=== PATIENT | female | born 1990 | race Asian ===

== ENCOUNTER 2018-03-18 20:52 | Inpatient (IN) | payer OTHER ==
[~2018-03-18] VITALS: Ht 163.8 cm; Wt 70.3 kg
[2018-03-18] MEDS ORDERED: OXYTOCIN 30U/ 0.9% NaCL 500ML 500 ML IV ONE (21:21)
[2018-03-18] MEDS ORDERED: D5%-LACTATED RINGERS 1,000 ML IV SCH (21:21)
[2018-03-18] MEDS ORDERED: OXYTOCIN 30U/ 0.9% NaCL 500ML 500 ML ONE (21:26)
[2018-03-18] MEDS ORDERED: MISOPROSTOL 200 MCG TABLET ONE (21:27)
[2018-03-18] MEDS ORDERED: LIDOCAINE-MPF 1%, 5ML ONE (21:27)
[2018-03-18] MEDS ORDERED: FENTANYL PF 100 MCG/2ML IV PRN (21:30)
[2018-03-18] MEDS ORDERED: CALCIUM CARBONATE 500 MG TAB.CHEW PO PRN (21:30)
[2018-03-18] MEDS ORDERED: ONDANSETRON 2MG/ML, 2ML IVPush PRN (21:30)
[2018-03-18] MEDS ORDERED: FENTANYL PF 100 MCG/2ML IVPush PRN (21:30)
[2018-03-18] MEDS ORDERED: LACTATED RINGERS 1,000 ML IVBOLUS PRN ×2 (21:30→23:30)
[2018-03-18 21:44] LABS: BASOPHILS # (AUTO) 0.02 x10^3/uL (0-0.1); BASOPHILS % (AUTO) 0 % (0-1); EOSINOPHILS # (AUTO) 0.26 x10^3/uL (0-0.4); EOSINOPHILS % (AUTO) 3 % (1-7); LYMPHOCYTES # (AUTO) 1.95 x10^3/uL (1-3.4); LYMPHOCYTES % (AUTO) 19 % (22-44); MD NO; MEAN CORPUSCULAR HEMOGLOBIN 26.9 pg (27.0-34.8); MEAN CORPUSCULAR HGB CONC 32.9 g/dL (32.4-35.8); MEAN CORPUSCULAR VOLUME 81.8 fL (80-100); MEAN PLATELET VOLUME 8.3 fL (7.4-10.4); MONOCYTES # (AUTO) 0.92 x10^3/uL (0.2-0.8); MONOCYTES % (AUTO) 9 % (2-9); NEUTROPHILS # (AUTO) 7.07 x10^3/uL (1.8-6.8); NEUTROPHILS % (AUTO) 69 % (42-75); PLATELET COUNT 336 x10^3/uL (130-400); RED BLOOD COUNT 4.64 x10^6/uL (3.82-5.3); RED CELL DISTRIBUTION WIDTH 21.1 % (9.6-15.2)
[2018-03-18] MEDS: LACTATED RINGERS 1,000 ML IV SCH (21:46)
[2018-03-18] MEDS ORDERED: FENTANYL PF 100 MCG/2ML ONE (22:25)
[2018-03-18] MEDS ORDERED: LIDOCAINE 1%, 20ML ONE (22:25)
[2018-03-18] MEDS ORDERED: BUPIVACAINE 0.25% ONE (22:25)
[2018-03-18] MEDS ORDERED: FENTANYL/BUPIV./NS/PF 250 ML EPIDCONT ONE (22:25)
[2018-03-18] MEDS ORDERED: EPHEDRINE 50 MG/ML, 1ML ONE (22:56)
[2018-03-18] MEDS ORDERED: FENTANYL/BUPIV./NS/PF 250 ML EPIDCONT SCH (23:28)
[2018-03-18] MEDS ORDERED: LACTATED RINGERS 1,000 ML IV SCH (23:28)
[2018-03-18] MEDS ORDERED: EPHEDRINE 50 MG/ML, 1ML IVPush PRN (23:30)
[2018-03-18] MEDS ORDERED: NALOXONE 0.4 MG/ML, 1ML IVPush PRN (23:30)
[2018-03-19] MEDS: LACTATED RINGERS 1,000 ML IV SCH ×5 (00:41→19:11)
[2018-03-19] MEDS ORDERED: METOCLOPRAMIDE 5 MG/ML, 2ML ONE (03:56)
[2018-03-19] MEDS ORDERED: SODIUM CITRATE/CITRIC ACID 30 ML UDC ONE (03:56)
[2018-03-19] MEDS ORDERED: OXYTOCIN 30U/ 0.9% NaCL 500ML 500 ML IV PRN (07:13)
[2018-03-19] MEDS ORDERED: FENTANYL PF 100 MCG/2ML ONE (16:39)
[2018-03-19] MEDS ORDERED: METOCLOPRAMIDE 5 MG/ML, 2ML IV PRN (17:00)
[2018-03-19] MEDS ORDERED: CALCIUM CARBONATE 500 MG TAB.CHEW PO PRN (17:00)
[2018-03-19] MEDS ORDERED: BISACODYL 10 MG SUPP PR PRN (17:00)
[2018-03-19] MEDS ORDERED: ONDANSETRON 2MG/ML, 2ML IV PRN (17:00)
[2018-03-19] MEDS: OXYTOCIN 30U/ 0.9% NaCL 500ML 500 ML IV SCH (17:00)
[2018-03-19] MEDS ORDERED: MEPERIDINE/PF 100 MG/ML IVPush PRN (17:00)
[2018-03-19] MEDS: KETOROLAC 30 MG/1 ML IV SCH (17:00)
[2018-03-19] MEDS ORDERED: ACETAMINOPHEN 325 MG TABLET PO PRN ×3 (17:00)
[2018-03-19] MEDS ORDERED: MEPERIDINE/PF 50 MG/ML IVPush PRN (17:00)
[2018-03-19] MEDS ORDERED: MISOPROSTOL 200 MCG TABLET PR PRN (17:00)
[2018-03-19] MEDS ORDERED: MEASLES,MUMPS&RUBELLA VACC/PF 0.5 ML SQ-VACC PRN (17:00)
[2018-03-19] MEDS ORDERED: GLYCERIN ADULT SUPP PR PRN (17:00)
[2018-03-19] MEDS ORDERED: SODIUM CITRATE/CITRIC ACID 30 ML UDC PO ONE (17:00)
[2018-03-19] MEDS ORDERED: OXYcodone/APAP 5/325MG TABLET PO PRN (17:00)
[2018-03-19] MEDS ORDERED: METHYLERGONOVINE 0.2 MG/ML IM PRN (17:00)
[2018-03-19] MEDS ORDERED: IBUPROFEN 600 MG TABLET PO PRN (17:00)
[2018-03-19] MEDS ORDERED: METOCLOPRAMIDE 5 MG/ML, 2ML IV ONE (17:00)
[2018-03-19] MEDS ORDERED: CARBOPROST TROMETHAMINE 250 MCG/ML, 1ML IM PRN (17:00)
[2018-03-19] MEDS ORDERED: LIDOCAINE 2%, 20ML ONE (17:14)
[2018-03-19] MEDS ORDERED: CEFAZOLIN 1,000 MG ONE (17:14)
[2018-03-19] MEDS ORDERED: KETOROLAC 30 MG/1 ML ONE (17:14)
[2018-03-19] MEDS ORDERED: FENTANYL PF 100 MCG/2ML IV PRN (18:30)
[2018-03-19] MEDS ORDERED: morphine SULFATE 10 MG/ML, 1ML IV PRN (18:30)
[2018-03-19] MEDS ORDERED: MIDAZOLAM 1 MG/ML, 2ML IV PRN (18:30)
[2018-03-19] MEDS ORDERED: ONDANSETRON 2MG/ML, 2ML IVPush PRN (18:30)
[2018-03-19] MEDS ORDERED: EPHEDRINE 50 MG/ML, 1ML IVPush PRN (18:30)
[2018-03-19] MEDS ORDERED: OXYcodone 5 MG/5 ML ORAL.SOL UDC PO PRN (18:30)
[2018-03-19] MEDS ORDERED: MEPERIDINE/PF 25MG/0.5ML IVPush PRN (18:30)
[2018-03-19] MEDS ORDERED: MEPERIDINE/PF 100 MG/ML ONE (18:43)
[2018-03-19 20:00] VITALS: BP 119/75
[2018-03-19] MEDS: OXYcodone/APAP 5/325MG TABLET PO PRN (22:34)
[2018-03-20 00:32] VITALS: BP 106/67
[2018-03-20] MEDS: KETOROLAC 30 MG/1 ML IV SCH ×4 (00:32→18:33)
[2018-03-20] MEDS: LACTATED RINGERS 1,000 ML IV SCH ×6 (01:00→23:00)
[2018-03-20 02:17] LABS: BASOPHILS # (AUTO) 0.03 x10^3/uL (0-0.1); BASOPHILS % (AUTO) 0 % (0-1); EOSINOPHILS % (AUTO) 1 % (1-7); LYMPHOCYTES # (AUTO) 1.12 x10^3/uL (1-3.4); LYMPHOCYTES % (AUTO) 9 % (22-44); MD NO; MEAN CORPUSCULAR HEMOGLOBIN 26.4 pg (27.0-34.8); MEAN CORPUSCULAR HGB CONC 32.3 g/dL (32.4-35.8); MEAN CORPUSCULAR VOLUME 81.8 fL (80-100); MEAN PLATELET VOLUME 8.5 fL (7.4-10.4); MONOCYTES # (AUTO) 0.97 x10^3/uL (0.2-0.8); MONOCYTES % (AUTO) 8 % (2-9); NEUTROPHILS # (AUTO) 10.77 x10^3/uL (1.8-6.8); NEUTROPHILS % (AUTO) 83 % (42-75); PLATELET COUNT 248 x10^3/uL (130-400); RED BLOOD COUNT 3.69 x10^6/uL (3.82-5.3); RED CELL DISTRIBUTION WIDTH 20.6 % (9.6-15.2)
[2018-03-20] MEDS: OXYTOCIN 30U/ 0.9% NaCL 500ML 500 ML IV SCH ×3 (03:00→23:00)
[2018-03-20] MEDS: OXYcodone/APAP 5/325MG TABLET PO PRN ×2 (03:49→09:07)
[2018-03-20 04:00] VITALS: BP 105/66
[2018-03-20 07:05] VITALS: BP 104/70
[2018-03-20] MEDS: PRENATAL VIT/IRON/FA 1 EACH TABLET PO SCH (09:00)
[2018-03-20] MEDS: DOCUSATE 100 MG CAPSULE PO PRN ×2 (09:07→23:47)
[2018-03-20] MEDS ORDERED: OXYcodone 5 MG/5 ML ORAL.SOL UDC PO PRN (09:30)
[2018-03-20 11:50] VITALS: BP 106/72
[2018-03-20] MEDS: ACETAMINOPHEN 325 MG TABLET PO SCH ×3 (15:08→22:10)
[2018-03-20 16:30] VITALS: BP 116/79
[2018-03-20] MEDS: OXYcodone IR 5MG TABLET PO PRN ×2 (17:31→23:47)
[2018-03-20] MEDS: FERROUS GLUCONATE 324 MG TABLET PO SCH (17:31)
[2018-03-20 20:03] VITALS: BP 105/65
[2018-03-20] MEDS: SIMETHICONE 80 MG CHEW TAB PO PRN (23:47)
[2018-03-21] MEDS: KETOROLAC 30 MG/1 ML IV SCH ×3 (00:39→12:19)
[2018-03-21] MEDS: LACTATED RINGERS 1,000 ML IV SCH ×5 (01:00→18:30)
[2018-03-21] MEDS: OXYcodone IR 5MG TABLET PO PRN ×5 (04:39→22:05)
[2018-03-21] MEDS: ACETAMINOPHEN 325 MG TABLET PO SCH ×3 (04:40→18:39)
[2018-03-21] MEDS: OXYTOCIN 30U/ 0.9% NaCL 500ML 500 ML IV SCH ×2 (08:40→18:31)
[2018-03-21] MEDS: IBUPROFEN 600 MG TABLET PO SCH ×2 (08:41→18:39)
[2018-03-21] MEDS: PRENATAL VIT/IRON/FA 1 EACH TABLET PO SCH (09:21)
[2018-03-21] MEDS: DOCUSATE 100 MG CAPSULE PO PRN ×2 (09:21→22:05)
[2018-03-21] MEDS: FERROUS GLUCONATE 324 MG TABLET PO SCH ×2 (09:21→16:38)
[2018-03-21] MEDS: SIMETHICONE 80 MG CHEW TAB PO PRN (09:21)
[2018-03-21 21:10] VITALS: BP 111/69
[2018-03-22] MEDS: ACETAMINOPHEN 325 MG TABLET PO SCH ×4 (00:39→18:07)
[2018-03-22] MEDS: IBUPROFEN 600 MG TABLET PO SCH ×4 (00:39→18:06)
[2018-03-22] MEDS: LACTATED RINGERS 1,000 ML IV SCH ×5 (00:46→13:56)
[2018-03-22] MEDS ORDERED: IBUP-1222 PO (01:53)
[2018-03-22] MEDS ORDERED: OXYC-302 PO (01:55)
[2018-03-22] MEDS ORDERED: DOCU-131 PO (01:55)
[2018-03-22] MEDS: OXYcodone IR 5MG TABLET PO PRN ×6 (02:52→21:35)
[2018-03-22] MEDS: OXYTOCIN 30U/ 0.9% NaCL 500ML 500 ML IV SCH ×2 (05:00→13:56)
[2018-03-22] MEDS: DOCUSATE 100 MG CAPSULE PO PRN ×2 (07:53→21:35)
[2018-03-22] MEDS: PRENATAL VIT/IRON/FA 1 EACH TABLET PO SCH (07:53)
[2018-03-22] MEDS: FERROUS GLUCONATE 324 MG TABLET PO SCH ×2 (07:53→16:36)
[2018-03-22 08:00] VITALS: BP 122/87
[2018-03-22 19:58] VITALS: BP 122/87
[2018-03-23] MEDS: IBUPROFEN 600 MG TABLET PO SCH ×3 (00:35→12:57)
[2018-03-23] MEDS: ACETAMINOPHEN 325 MG TABLET PO SCH ×2 (00:36→06:16)
[2018-03-23] MEDS: LACTATED RINGERS 1,000 ML IV SCH ×2 (01:00)
[2018-03-23] MEDS: OXYTOCIN 30U/ 0.9% NaCL 500ML 500 ML IV SCH (01:00)
[2018-03-23] MEDS: OXYcodone IR 5MG TABLET PO PRN (01:40)
[2018-03-23 07:10] VITALS: BP 129/87
[2018-03-23] MEDS: SIMETHICONE 80 MG CHEW TAB PO PRN (09:33)
[2018-03-23] MEDS: PRENATAL VIT/IRON/FA 1 EACH TABLET PO SCH (09:33)
[2018-03-23] MEDS: DOCUSATE 100 MG CAPSULE PO PRN (09:34)
[2018-03-23] MEDS: FERROUS GLUCONATE 324 MG TABLET PO SCH (09:37)
[2018-03-23] MEDS: OXYcodone/APAP 5/325MG TABLET PO PRN ×2 (13:06→17:16)
== END 2018-03-23 17:25 | disposition home or self-care (01) | DRG 766 ==
LOC: LDOP 20:52 → LDIP 22:19 → 2NW 03-19 19:33
PROVIDERS: ADMIT Obstetrics & Gynecology; ATTEND Obstetrics & Gynecology
PROC: 10D00Z1 Extraction of Products of Conception, Low, Open Approach (ICD-10-PCS; principal; 2018-03-18)
DX: O62.1 Secondary uterine inertia (principal); G43.909 Migraine, unspecified, not intractable, without status migrainosus; O75.89 Other specified complications of labor and delivery; Z37.0 Single live birth; Z3A.39 39 weeks gestation of pregnancy
CPT/HCPCS: 36415; 82803; 85025; 86850; 86900; J0690; J1885; J2175; J3010; J3490; J2590; J2765; J7120; J7121